=== PATIENT | male | born 1970 | race Two or more races ===

== ENCOUNTER 2024-06-09 06:45 | Day surgery (SDC) | payer MEDICAID, SELFPAY ==
[2024-06-09] VITALS (9 sets, daily range): BP systolic 98–154; BP diastolic 69–101; PULSE 60–81; RESP 12–20; TEMP 36.3–36.7; O2SAT 93–100
[2024-06-09] MEDS: SODIUM CHLORIDE 0.9% 100 ML IV (07:36)
[2024-06-09] MEDS: fentaNYL CIT INJ 50 mCg/ML AMP 2ML (ASD USE ONLY) IV (07:36)
[2024-06-09] MEDS: DiphenhydrAMINE INJ 50 MG/ML VIAL 25 MG IV (07:36)
[2024-06-09] MEDS: MIDAZOLAM INJ 1 MG/ML VIAL 2 ML (ASD USE ONLY) 2 MG IV (07:36)
== END 2024-06-09 08:20 | disposition home or self-care (01) ==
PROVIDERS: PCP Family Medicine; Referring Provider Surgery; Visit Provider Surgery
PROC: 0DBE8ZX Excision of Large Intestine, Via Natural or Artificial Opening Endoscopic, Diagnostic (ICD-10-PCS; CPT 45380; principal; 2024-06-09 07:30)
DX: Z12.11 Encounter for screening for malignant neoplasm of colon (principal); K57.30 Diverticulosis of large intestine without perforation or abscess without bleeding
CPT/HCPCS: 44388; J1200; J2250; J3010; J7050

== ENCOUNTER 2024-07-10 08:40 | Inpatient (IN) | payer MEDICAID, SELFPAY ==
--- NOTE | 2024-07-07 06:26 | EKG_ITS ---
[facility] Test Date: 2024-07-07 Pat Name: AMAURI MAI Department: Room: - Gender: Male Vice President Business & Corporate Development: RAQUEL : 1970 Requested By: Vivian Porras Order Number: [id number] Reading MD: Vivian Porras Measurements Intervals Eighty Four Rate: 62 P: 30 ID: [id number] QRS: 3 QRSD: 90 T: 38 QT: 399 QTc: 407 Interpretive Statements SINUS RHYTHM Compared to ECG 11/29/2023 08:17:30 Sinus tachycardia no longer present /store/S0/[id number]
[2024-07-07 09:15] VITALS: BMI 30.9
[2024-07-07 11:29] LABS: Basophils # (Auto) 0.1 Thou/mm3 (0.0-0.2); Basophils % (Auto) 1 % (0-2.5); Eosinophils # (Auto) 0.1 Thou/mm3 (0.0-0.5); Eosinophils % (Auto) 3 % (0-10); Hematocrit 44.3 % (41.0-53.0); Hemoglobin 15.4 g/dL (13.5-16.0); Immature Granulocytes % (Auto) 1 % (0-0); Immature Granulocytes Auto 0.04 Thou/mm3 (0.00-0.00); Lymphocytes # (Auto) 2.2 Thou/mm3 (1.0-4.8); Lymphocytes % (Auto) 50 % (10-50); Mean Corpuscular HGB Conc 34.8 g/dl (31.0-37.0); Mean Corpuscular Hemoglobin 31.4 pg (25.0-35.0); Mean Corpuscular Volume 90 fL (80-100); Monocytes # (Auto) 0.4 Thou/mm3 (0.0-0.8); Monocytes % (Auto) 10 % (0-12); Neutrophils # (Auto) 1.5 Thou/mm3 (1.8-7.7); Neutrophils % (Auto) 35 % (37-80); Nucleated Red Blood Cell % 0 /100 WBC (0); Platelet Count 203 Thou/mm3 (140-440); RDW Standard Deviation 45.4 fL (35.1-43.9); Red Blood Count 4.91 Miln/mm3 (4.50-5.90); White Blood Count 4.3 Thou/mm3 (3.8-10.6)
[2024-07-07 11:41] LABS: Anion Gap 6 (7-16); BUN/Creatinine Ratio 8 Ratio (12-20); Blood Urea Nitrogen 10 mg/dL (9-23); Calcium 9.2 mg/dL (8.3-10.6); Carbon Dioxide 24.7 mMol/L (20.0-31.0); Chloride 108 mMol/L (98-107); Creatinine (Component) 1.2 mg/dL (0.6-1.3); Estimated Creatinine Clearance 67.1 mL/min (>60); Glucose 105 mg/dL (74-106); Osmolality,Calculated 276 (275-295); Potassium 4.5 mMol/L (3.4-5.1); Sodium 139 mMol/L (136-145); eGFR > 60 See Note
[2024-07-10] VITALS (12 sets, daily range): BP systolic 112–151; BP diastolic 80–99; PULSE 57–68; RESP 12–18; TEMP 36.1–36.8; O2SAT 93–99; BMI 30.4
--- NOTE | 2024-07-10 15:07 | ESOP_ITS ---
Date of Procedure 07/10/24 Pre Op Diagnosis History of perforated diverticulitis status post sigmoid colectomy and colostomy Post Op Diagnosis History of perforated diverticulitis status post sigmoid colectomy with colostomy Parastomal hernia Procedure Exploratory laparotomy, lysis of adhesions and reversal of colostomy Findings Significant amount of adhesions from previous operation. Patient was noted to have moderate size parastomal hernia Procedure Description Patient is brought to the operating room in supine position. After admin istration of general endotracheal anesthesia, patient was placed in low lithotomy position. The colostomy site was closed with a pursestring suture using 0 Prolene. Patient's abdomen and perineum prepped and draped in standard surgical manner. A laparotomy incision was made over his previous scar and dissection was deepened into soft tissue. The abdominal cavity was entered. Patient was noted to have significant amounts of adhesions from previous operation that were lysed. The small bowel was then retracted cephalad into the right upper quadrant. A Bookwalter retractor was placed for adequate exposure. Multiple loops of small bowel were adherent to the rectal stump, adhesions were divided and the loops of small bowel were freed. The Prolene sutures that were placed at the previous operation at the rectal stump were then identified and the proximal aspect of rectal stump was mobilized for the anastomosis. At this point I turned my attention to the colostomy site. An elliptical incision was made around the colostomy site and the colostomy was circumferentially dissected out surrounding tissue. Patient was noted to have a parastomal hernia that was not incarcerated. The hernia sac was circumferentially dissected out surrounding tissue and excised. The colostomy site was then reduced. The end of colostomy was divided with ADDIE stapling device. The end of descending colon was reaching the pelvis without any tension. The end of descending colon was opened, a pursestring suture using 2-0 Prolene applied. The anvil portion of the EEA stapling device was placed at the end of descending colon and the pursestring suture was tightened. Patient's rectum and anal canal were sequentially dilated. The EEA stapling device was placed through the rectum and was brought out just anterior to the rectal stump. The EEA stapling device was opened and connected to the anvil, care was taken to make sure orientation was appropriate without tension or any kinking. The stapling device was closed and fired. 2 well-formed donuts were retrieved. The integrity of the anastomosis was then checked by doing an air leak test. A rigid proctoscope was placed through the anal canal and air was insufflated. The pelvis was filled with warm saline, there was no evidence of any air leak assuring anastomosis was airtight. Air was removed and the rigid proctoscope was removed. Using 3-0 silk suture circumferential Lembert sutures were placed around the anastomosis to further secure the anastomosis. Abdomen and pelvis copiously and thoroughly washed and irrigated, all the fluids were suctioned and the suction fluid returned clear. Hemostasis was adequate and satisfactory. I then turned my attention to closure of the posterior layer of the colostomy site. The peritoneum and posterior abdominal fascia opening of the colostomy site were closed with interrupted [id number]-eb-[id number] sutures using 0 Prolene. The laparotomy incision was then closed. The fascia was reapproximated with interrupted sutures using 0 PDS as well as interrupted sutures with #1 Vicryl. The wound was washed and the skin was closed with maia. The anterior abdominal fascial defect of colostomy site was then closed with interrupted [id number] sutures using 0 Prolene. The wound was washed and the skin was partially closed with maia. Telfa abad were placed between the stapler to act as a drain. Both incisions were covered with dry dressings and abdominal binder applied. Patient tolerated procedure well. He was placed in supine position and extubated. He was breathing spontaneously and without difficulty and was transferred to postanesthesia care in stable condition. Instruments, needles and sponge counts were reported to be correct x 2. Anesthesia GETA Pathology / specimen Other (Colostomy site) Estimated Blood Loss 100 Condition Stable Disposition PACU Surgeon Vivian Porras MD Surgical Staff Operation Date: 07/10/24 12:15 Case Staff ELECTRODE CLEANING MACHINE OPERATOR: Maik Bishop RNsupervisor heat treating: Cyndee Dennis
--- NOTE | 2024-07-10 15:16 | SUR.PHASEI ---
1516: Pt. wakes to name then drifts back to sleep, vitals stable, breathing unlabored, no signs of distress, dressing to ABD CDI, ABD Binder in place, no active bleed noted, bowens catheter in place, report received from Maik BASSETT and Jori HENRY.
[2024-07-10] MEDS: HYDROmorphone 1 MG/ML PCA SYRINGE 30ML PCA (15:44)
[2024-07-10] MEDS: KCL 20 mEq/L in D5-1/2NS 20 MEQ/1,000 ML BAG 65 MEQ IV (15:54)
--- NOTE | 2024-07-10 16:40 | SUR.PHASEI ---
1640: Pt. AAOx4, vitals stable, breathing unlabored, no complaint of pain or nausea, dressing to ABD CDI, no active bleed noted, bowens catheter in place, gave report to Armen RN prior to transfer to room, family made aware of transfer to room.
[2024-07-10] MEDS: CEFOXITIN 2 GM in SODIUM CHLORIDE 0.9% (Popper) 50 ML IV ×2 (17:59→23:06)
[2024-07-10] MEDS: ASCORBIC ACID 250 MG TABLET 500 MG PO (20:40)
[2024-07-10] MEDS: DOCUSATE SOD 100 MG CAPSULE PO (20:40)
[2024-07-11] VITALS (10 sets, daily range): BP systolic 105–135; BP diastolic 65–91; PULSE 67–81; RESP 13–19; TEMP 36.2–37.1; O2SAT 93–100
[2024-07-11] MEDS: ACETAMINOPHEN IVPB 1,000 MG/100 ML VIAL 250 MG IV ×3 (00:05→12:22)
[2024-07-11] MEDS: CEFOXITIN 2 GM in SODIUM CHLORIDE 0.9% (Popper) 50 ML IV ×4 (05:14→23:31)
[2024-07-11] MEDS: KCL 20 mEq/L in D5-1/2NS 20 MEQ/1,000 ML BAG 65 MEQ IV (09:01)
--- NOTE | 2024-07-11 11:52 | PD.SURPROG ---
Documentation for date of: 07/11/24 Subjective Subjective Narrative: Patient is seen and examined. He is resting comfortably. He is complaining of incisional pain, controlled with REFRACTORY FURNACE DESIGNER. He denies nausea or vomiting. He has not passed flatus or bowel movement yet Exam Vital Signs Temp Pulse Resp BP Pulse Ox O2 Del Method O2 Flow Rate 97.4 F 68 18 119/75 97 Room Air 4 07/11/24 08:00 07/11/24 08:00 07/11/24 08:00 07/11/24 08:00 07/11/24 08:00 07/11/24 08:00 07/11/24 08:00 Constitutional Constitutional: no acute distress Routine Abdominal Exam Abdominal: Present soft, tenderness (Incisions with dressings clean, dry and intact) and distended (Mildly distended); Absent normoactive bowel sounds Assessment & Plan Assessment Additional comments: Postop day #1 status post exploratory laparotomy, lysis of adhesions and reversal of colostomy Plan Continue IV antibiotics. Keep patient n.p.o. with IV fluids. May have ice chips. Increase ambulation and use incentive spirometer Procedures Procedures Exploratory laparotomy, lysis of adhesions and reversal of colostomy
[2024-07-11] MEDS: ASCORBIC ACID 250 MG TABLET 500 MG PO ×2 (12:21→20:09)
[2024-07-11] MEDS: ZINC SULFATE 220 MG CAPSULE PO (12:21)
[2024-07-11] MEDS: DOCUSATE SOD 100 MG CAPSULE PO ×2 (12:22→20:09)
--- NOTE | 2024-07-11 13:22 | PC.NURSE ---
pt ambulated around the unit
[2024-07-12] VITALS (10 sets, daily range): BP systolic 114–150; BP diastolic 89–98; PULSE 80–97; RESP 14–19; TEMP 36–36.7; O2SAT 95–99
[2024-07-12] MEDS: KCL 20 mEq/L in D5-1/2NS 20 MEQ/1,000 ML BAG 65 MEQ IV (01:12)
[2024-07-12] MEDS: CEFOXITIN 2 GM in SODIUM CHLORIDE 0.9% (Popper) 50 ML IV ×3 (05:02→17:57)
[2024-07-12 06:10] LABS: Basophils % (Auto) 0 % (0-2.5); Eosinophils % (Auto) 0 % (0-10); Hematocrit 41.3 % (41.0-53.0); Hemoglobin 13.7 g/dL (13.5-16.0); Immature Granulocytes % (Auto) 0 % (0-0); Immature Granulocytes Auto 0.03 Thou/mm3 (0.00-0.00); Lymphocytes # (Auto) 1.5 Thou/mm3 (1.0-4.8); Lymphocytes % (Auto) 15 % (10-50); Mean Corpuscular HGB Conc 33.2 g/dl (31.0-37.0); Mean Corpuscular Hemoglobin 30.4 pg (25.0-35.0); Mean Corpuscular Volume 92 fL (80-100); Monocytes # (Auto) 0.7 Thou/mm3 (0.0-0.8); Monocytes % (Auto) 7 % (0-12); Neutrophils # (Auto) 7.7 Thou/mm3 (1.8-7.7); Neutrophils % (Auto) 77 % (37-80); Nucleated Red Blood Cell % 0 /100 WBC (0); Platelet Count 174 Thou/mm3 (140-440); RDW Standard Deviation 48.6 fL (35.1-43.9); Red Blood Count 4.51 Miln/mm3 (4.50-5.90)
[2024-07-12 06:42] LABS: Anion Gap 6 (7-16); BUN/Creatinine Ratio 9 Ratio (12-20); Blood Urea Nitrogen 12 mg/dL (9-23); Calcium 8.2 mg/dL (8.3-10.6); Calcium (Corrected) 8.2 mg/dL (8.5-10.1); Carbon Dioxide 27.4 mMol/L (20.0-31.0); Chloride 103 mMol/L (98-107); Creatinine (Component) 1.3 mg/dL (0.6-1.3); Estimated Creatinine Clearance 61.5 mL/min (>60); Glucose 118 mg/dL (74-106); Magnesium 2.2 mg/dL (1.6-2.6); Osmolality,Calculated 272 (275-295); Phosphorous 2.6 mg/dL (2.4-5.1); Potassium 4.4 mMol/L (3.4-5.1); Sodium 136 mMol/L (136-145); eGFR > 60 See Note
[2024-07-12] MEDS: DOCUSATE SOD 100 MG CAPSULE PO ×2 (09:09→20:41)
[2024-07-12] MEDS: ASCORBIC ACID 250 MG TABLET 500 MG PO ×2 (09:09→20:41)
[2024-07-12] MEDS: ZINC SULFATE 220 MG CAPSULE PO (09:09)
--- NOTE | 2024-07-12 12:05 | PD.SURPROG ---
Documentation for date of: 07/12/24 Subjective Subjective Narrative: Patient is seen and examined. He is complaining of headache. Abdominal pain is improving. He denies nausea or vomiting. Exam Vital Signs Temp Pulse Resp BP Pulse Ox O2 Del Method O2 Flow Rate 98.1 F 88 17 143/90 H 96 Room Air 4 07/12/24 11:33 07/12/24 11:33 07/12/24 11:33 07/12/24 11:33 07/12/24 11:33 07/12/24 11:07/12/24 09:16 Constitutional Constitutional: no acute distress Routine Abdominal Exam Comments: Abdomen is soft and minimally distended. He has hypoactive bowel sounds. Incisions with dressings clean, dry and intact Assessment & Plan Assessment Additional comments: Postop day #2 status post exploratory laparotomy with lysis of adhesions and reversal of colostomy Plan Continue IV antibiotics. Will start patient on liquid diet. DC Tate catheter. Use incentive spirometer and increase ambulation Procedures Procedures Exploratory laparotomy, lysis of adhesions and reversal of colostomy
[2024-07-12] MEDS: ACETAMINOPHEN 325 MG TABLET 650 MG PO (21:50)
[2024-07-12] MEDS: KCL 20 mEq/L in D5-1/2NS 20 MEQ/1,000 ML BAG 40 MEQ IV (21:59)
[2024-07-13] VITALS (10 sets, daily range): BP systolic 120–144; BP diastolic 75–97; PULSE 79–96; RESP 16–18; TEMP 36.1–37.4; O2SAT 93–97; BMI 30.3
[2024-07-13] MEDS: CEFOXITIN 2 GM in SODIUM CHLORIDE 0.9% (Popper) 50 ML IV ×4 (00:04→18:23)
[2024-07-13] MEDS: ASCORBIC ACID 250 MG TABLET 500 MG PO ×2 (08:36→20:04)
[2024-07-13] MEDS: DOCUSATE SOD 100 MG CAPSULE PO ×2 (08:37→20:04)
[2024-07-13] MEDS: ZINC SULFATE 220 MG CAPSULE PO (08:37)
--- NOTE | 2024-07-13 10:00 | CHAP ---
Patient was visited by the Spiritual Care Volunteer who prayed for them. (Volunteer was in the hospital from 9:29-c10:00)
--- NOTE | 2024-07-13 15:09 | PD.SURPROG ---
Documentation for date of: 07/13/24 Subjective Subjective Narrative: Patient is seen and examined. His pain is improving. He is tolerating liquids without nausea or vomiting and passing flatus. His Tate catheter was removed, he has been voiding without difficulty Exam Vital Signs Temp Pulse Resp BP Pulse Ox O2 Del Method O2 Flow Rate 97.4 F 90 18 144/92 H 94 L Room Air 4 07/13/24 12:00 07/13/24 12:00 07/13/24 12:00 07/13/24 12:00 07/13/24 12:00 07/13/24 12:00 07/12/24 09:16 Constitutional Constitutional: no acute distress Routine Abdominal Exam Comments: Abdomen is soft and minimally distended. Incision with dressings clean, dry and intact. He has active bowel sounds Assessment & Plan Assessment Additional comments: Postop day #3 status post exploratory laparotomy with lysis of adhesions and reversal of colostomy Plan Continue IV antibiotics. Will advance to full liquids Procedures Procedures Exploratory laparotomy, lysis of adhesions and reversal of colostomy
--- NOTE | 2024-07-13 16:07 | PC.SS ---
Follow up note: Advance diet. Pain Management. On IV antibiotic.
[2024-07-14] VITALS (8 sets, daily range): BP systolic 115–140; BP diastolic 85–98; PULSE 88–106; RESP 16–97; TEMP 36.2–37.1; O2SAT 95–97
[2024-07-14] MEDS: CEFOXITIN 2 GM in SODIUM CHLORIDE 0.9% (Popper) 50 ML IV ×4 (00:40→18:40)
[2024-07-14 05:53] LABS: Basophils # (Auto) 0.1 Thou/mm3 (0.0-0.2); Basophils % (Auto) 1 % (0-2.5); Eosinophils # (Auto) 0.3 Thou/mm3 (0.0-0.5); Eosinophils % (Auto) 3 % (0-10); Hematocrit 41.9 % (41.0-53.0); Hemoglobin 14.7 g/dL (13.5-16.0); Immature Granulocytes % (Auto) 1 % (0-0); Immature Granulocytes Auto 0.08 Thou/mm3 (0.00-0.00); Lymphocytes # (Auto) 1.9 Thou/mm3 (1.0-4.8); Lymphocytes % (Auto) 22 % (10-50); Mean Corpuscular HGB Conc 35.1 g/dl (31.0-37.0); Mean Corpuscular Hemoglobin 30.8 pg (25.0-35.0); Mean Corpuscular Volume 88 fL (80-100); Monocytes # (Auto) 0.9 Thou/mm3 (0.0-0.8); Monocytes % (Auto) 10 % (0-12); Neutrophils # (Auto) 5.5 Thou/mm3 (1.8-7.7); Neutrophils % (Auto) 63 % (37-80); Nucleated Red Blood Cell % 0 /100 WBC (0); Platelet Count 240 Thou/mm3 (140-440); RDW Standard Deviation 43.2 fL (35.1-43.9); Red Blood Count 4.77 Miln/mm3 (4.50-5.90); White Blood Count 8.6 Thou/mm3 (3.8-10.6)
[2024-07-14 06:21] LABS: Albumin, Serum 4.1 gm/dL (3.5-5.0); Anion Gap 10 (7-16); BUN/Creatinine Ratio 19 Ratio (12-20); Blood Urea Nitrogen 17 mg/dL (9-23); Calcium 9.1 mg/dL (8.3-10.6); Calcium (Corrected) 9.1 mg/dL (8.5-10.1); Carbon Dioxide 23.1 mMol/L (20.0-31.0); Chloride 104 mMol/L (98-107); Creatinine (Component) 0.9 mg/dL (0.6-1.3); Estimated Creatinine Clearance 88.8 mL/min (>60); Glucose 112 mg/dL (74-106); Magnesium 2.1 mg/dL (1.6-2.6); Osmolality,Calculated 276 (275-295); Phosphorous 3.7 mg/dL (2.4-5.1); Potassium 4.1 mMol/L (3.4-5.1); Sodium 137 mMol/L (136-145); eGFR > 60 See Note
[2024-07-14] MEDS: ZINC SULFATE 220 MG CAPSULE PO (09:28)
[2024-07-14] MEDS: DOCUSATE SOD 100 MG CAPSULE PO ×2 (09:28→20:04)
[2024-07-14] MEDS: ASCORBIC ACID 250 MG TABLET 500 MG PO ×2 (09:28→20:03)
--- NOTE | 2024-07-14 10:51 | CHAP ---
Patient was visited by a Spiritual Care Volunteer on 07/14/2024 between 0910 and 3203 and received comfort, encouragement and/or prayer.
--- NOTE | 2024-07-14 12:08 | PC.SS ---
SS met with patient and family (sister &brother in law) regarding his d/c plan.? Pt is alert/oriented.? Pt was admitted for Exp Lap 25596.? Pt confirmed demographic and contact information is correct on facesheet.? Pt resides alone.? Pt ambulates independently without assistance or DME.? Pt is ok with all ADLs.? Pt named his sister, Grecia Yoder medical decision maker if he is unable.? Patient?s choice is to return home upon d/c.? ?Pt states not diabetic and is not on dialysis.? Pt followed up with PCP 4 weeks ago and his next appointment is 08-22-2024 at 2:30pm.?? D/C plan:? Return home Next of Kin:? ?Grecia Yoder, sister, phone# [phone] PCP:? Dr. Karson Grant from [facility] in [place] Address:? Correct on facesheet Patient's phone#:? [phone]
--- NOTE | 2024-07-14 15:10 | PC.NURSE ---
AT BEDSIDE ASSESSING INCISION
--- NOTE | 2024-07-14 15:27 | PD.SURPROG ---
Documentation for date of: 07/14/24 Subjective Subjective Narrative: Patient is seen and examined. His pain is improving. He is tolerating liquids without nausea or vomiting and having bowel movements Exam Vital Signs Temp Pulse Resp BP Pulse Ox O2 Del Method O2 Flow Rate 97.1 F 92 18 127/93 H 97 Room Air 4 07/14/24 12:00 07/14/24 12:00 07/14/24 12:00 07/14/24 12:00 07/14/24 12:00 07/14/24 12:00 07/12/24 09:16 Constitutional Constitutional: no acute distress Routine Abdominal Exam Comments: Abdomen is soft and nondistended. Incisions are clean, dry and intact Assessment & Plan Assessment Additional comments: Postop day #4 status post exploratory laparotomy with lysis of adhesions and reversal of colostomy Plan Will advance to soft diet. If he tolerates diet and continues to have bowel movement, possible discharge home tomorrow Procedures Procedures Exploratory laparotomy, lysis of adhesions and reversal of colostomy
[2024-07-15] VITALS: BP 136/94; PULSE 98; RESP 20; TEMP 36.5; O2SAT 95
[2024-07-15] MEDS: CEFOXITIN 2 GM in SODIUM CHLORIDE 0.9% (Popper) 50 ML IV ×2 (00:09→05:11)
[2024-07-15 04:00] VITALS: BP 137/96; PULSE 90; RESP 16; TEMP 36.6; O2SAT 97
[2024-07-15 08:00] VITALS: BP 132/98; PULSE 87; RESP 16; TEMP 36.2; O2SAT 96
[2024-07-15] MEDS: DOCUSATE SOD 100 MG CAPSULE PO (08:16)
[2024-07-15] MEDS: ZINC SULFATE 220 MG CAPSULE PO (08:16)
[2024-07-15] MEDS: ASCORBIC ACID 250 MG TABLET 500 MG PO (08:16)
--- NOTE | 2024-07-15 08:27 | ESDS_ITS ---
Planned Discharge Date 07/15/24 DS: Providers Provider Date of admission: 07/10/24 08:40 Primary care physician: Karson Grant MD Admitting Provider: Vivian Porras MD Attending Provider on Admission: Vivian Porras MD Attending Provider on DC: Vivian Porras MD Discharging Provider: Vivian Porras MD Diagnosis Problem List Completed Was Problem List Reviewed/Reconciled?: Yes Hospital Course Brief History: Patient has history of perforated diverticulitis for which she underwent sigmoid colectomy with end colostomy. He underwent colonoscopy that was unremarkable. Patient was then scheduled for exploratory laparotomy and reversal of colostomy. Patient underwent exploratory laparotomy with lysis of adhesions and reversal of colostomy. His Tate catheter was removed on postop day #2, he was able to void without difficulty. He was started on liquid diet and his diet was gradually advanced. He was eating and tolerating diet well without nausea or vomiting. He started passing flatus and had bowel movements. His incisions are clean, dry and intact. He has remained hemodynamically stable and afebrile throughout hospitalization. He is being discharged home in stable condition. Status at Discharge Functional status at discharge: independent ambulation Overall status at discharge: patient is progressing back to baseline Exam Vital Signs Temp Pulse Resp BP Pulse Ox O2 Del Method O2 Flow Rate 97.1 F 87 16 132/98 H 96 Room Air 4 07/15/24 08:00 07/15/24 08:00 07/15/24 08:00 07/15/24 08:00 07/15/24 08:00 07/15/24 08:00 07/12/24 09:16 Constitutional Constitutional: no acute distress Routine Abdominal Exam Abdominal: Present soft, normoactive bowel sounds and tenderness (Mild josafat- incisional tenderness. Incisions are clean, dry and intact); Absent distended Discharge Plan Plan Patient Disposition: HOME (Self Care) Prescriptions/Referrals Prescriptions/Med Rec: New hydrocodone-acetaminophen 5-325 mg Tablet 1 tab PO Q6HR MDD 4 PRN (Reason: Pain Scale 4-6 (Moderate) Qty: 30 0RF ascorbic acid (vitamin C) [Vitamin C] 250 mg Tablet 500 mg PO BID Qty: 60 0RF docusate sodium 100 mg Capsule 100 mg PO BID Qty: 30 0RF zinc sulfate 50 mg zinc (220 mg) Capsule 220 mg PO QDAY Qty: 30 0RF Referrals: Karson Grant MD [Primary Care Provider] - Patient/Caregiver Discharge Instructions Discharge Activity: activity as tolerated Print Language: Croatian Activity Restrictions/Additional Instructions: May shower. Keep incisions clean and dry. Wear abdominal binder at all times. Avoid lifting, straining, pulling or pushing for 8 weeks. May take over the counter laxatives if no bowel movement in [address] days[address] Follow up with Dr. Porras at [facility] in 2 weeks, please call for an appointment. Continue soft diet for 1 week then advance to high-fiber diet. Stand Alone Forms: Personal Development Bureau Award Info., Patient Portal Info Letter Discharge Order Discharge Orders: Discharge (Routine); Ordered 07/15/24 Ordered By: Vivian Porras Procedures Procedure Date 07/10/24 Procedures Exploratory laparotomy, lysis of adhesions and reversal of colostomy
[2024-07-15 08:30] VITALS: PULSE 87; RESP 18; RESP 97
[2024-07-15 12:00] VITALS: BP 114/87; PULSE 95; RESP 18; TEMP 36.3; O2SAT 97
== END 2024-07-15 12:51 | disposition home or self-care (01) | DRG 231 ==
LOC: S2W1 09:03 → S3SX 16:51
PROVIDERS: Admitting Provider Surgery; PCP Internal Medicine; Visit Provider Surgery
PROC: 0DBN0ZZ Excision of Sigmoid Colon, Open Approach (ICD-10-PCS; CPT 49000; principal; 2024-07-10 12:00)
DX: Z43.3 Encounter for attention to colostomy (principal); K43.5 Parastomal hernia without obstruction or gangrene; K66.0 Peritoneal adhesions (postprocedural) (postinfection); K57.80 Diverticulitis of intestine, part unspecified, with perforation and abscess without bleeding
CPT/HCPCS: 36415; 80048; 80069; 83735; 85025; 93005; A4217; A4649; J0131; J0694; J1100; J2371; J2405; J2704; J3010; J3480; J3490; J7050; A9270; J1920

== ENCOUNTER 2024-07-19 13:57 | Emergency (ER) | payer MEDICAID, SELFPAY ==
[2024-07-19 14:27] VITALS: BP 144/83; PULSE 77; RESP 16; TEMP 36.9; O2SAT 97; BMI 29.9
--- NOTE | 2024-07-19 14:45 | EDNOTE_ITS ---
<Statement entered by Marie Harrell MD - 07/19/24 17:50> As co-signing physician, I was present and available for consult prn. I concur with the plan and care as documented by the midlevel provider. ED General RME/HPI General Chief complaint: General Adult/Misc Complain Stated complaint: INCISION OPENED A LITTLE, SURGERY LAST WEEK Time Seen by Provider: 07/19/24 14:17 Arrival date/time: 07/19/24 13:57 54-year-old male presents emergency department today stating that he had surgery last week for a colostomy reversal patient reports that he has a wound dehiscence at the colostomy site at this time. Patient REports no fever nausea or vomiting Limitations: no limitations Related Data Previous Rx's ?Medication ?Instructions ?Recorded ascorbic acid (vitamin C) 250 mg 500 mg (2 x 250 mg) P O BID #60 tabs 07/15/24 tablet (Vitamin C) docusate sodium 100 mg capsule 100 mg PO BID #30 caps 07/15/24 hydrocodone 5 mg-acetaminophen 325 1 tab PO Q6HR PRN P ain Scale 4-6 07/15/24 mg tablet (Moderate #30 tabs zinc sulfate 50 mg zinc (220 mg) 220 mg (4.4 x 50 mg z inc (220 mg)) 07/15/24 capsule PO QDAY #30 caps sulfamethoxazole 800 1 tab PO BID 7 days #14 tabs 07/19/24 mg-trimethoprim 160 mg tablet (Bactrim DS) Allergies Allergy/AdvReac Type Severity Reaction Status Date / Time No Known Allergies Allergy Verified 07/19/24 14:06 Review of Systems Review of Systems Systems Reviewed: All systems reviewed, normal except as documented Constitutional Constitutional: Reports system reviewed and no additional complaints, except as documented, Denies fever(s) and Denies headache(s) Eyes Eyes: Reports system reviewed and no additional complaints, except as documented and Denies blurry vision ENT Ears, Nose, Mouth, and Throat: Reports system reviewed and no additional complaints, except as documented, Denies headache(s), Denies nasal congestion and Denies nasal discharge Cardiovascular Cardiovascular: Reports system reviewed and no additional complaints, except as documented, Denies chest pain and Denies dyspnea Respiratory Respiratory: Reports system reviewed and no additional complaints, except as documented, Denies chest congestion, Denies cough and Denies dyspnea Gastrointestinal Gastrointestinal: Reports system reviewed and no additional complaints, except as documented and Denies abdominal pain Integumentary/Breasts Skin/Breast: Reports system reviewed and no additional complaints, except as documented, Denies rash and Reports wounds (Wound dehiscence left lower abdomen) Neurologic Neurologic: Reports system reviewed and no additional complaints, except as documented, Reports as per HPI and Denies headache(s) Past Medical History Past Medical History NEUROLOGIC: Negative Neurological Disorders or Seizures CARDIAC: Negative Cardiac Disorders or Congestive Heart Failure RESPIRATORY: Negative Chronic Obstructive Pulmonary Disease (COPD) or Asthma GASTROINTESTINAL: Positive Gastrointestinal Disorders and Diverticulitis; Negative Hepatitis GENITOURINARY: Negative Genitourinary Disorders or Renal Disease MUSCULOSKELETAL: Negative Musculoskeletal Disorders ENDOCRINE: Negative Endocrine Disorders, Diabetes Mellitus Type 1 or Diabetes Mellitus Type 2 HEMATOLOGIC: Negative Blood Disorders or Sickle Cell Disease OTHER HISTORY: Positive Hospitalization (surgery), Chicken Pox and Measles; Negative Autoimmune Disease, Shingles, Blood Transfusions, Anesthesia Reactions or Cancer Family History FAMILY HISTORY: Positive Family Surgery; Negative Family Psychiatric Problems, Family Respiratory Disorders, Family Cardiac Disorders, Family Gastrointestinal Problems, Family Cancer or Family Anesthesia Reaction Surgical History SURGICAL: Positive Bowel Surgery (Sigmoid colectomy with colostomy) Social History SMOKING STATUS: Never smoker SECOND HAND EXPOSURE: No SUBSTANCE USE: methamphetamine ED Exam General Limitations: Present no limitations General appearance: Present alert and in no apparent distress Head Head exam: Present atraumatic Eye Eye exam: Present normal appearance, PERRL and EOMI ENT ENT exam: Present normal exam, normal oropharynx and mucous membranes moist Neck Neck exam: Present normal inspection, full ROM and trachea midline Chest Chest inspection: Present normal inspection and symmetric chest wall rise Respiratory Respiratory exam: Present normal lung sounds bilaterally Cardiovascular Cardiovascular exam: Present regular rate, normal rhythm and normal heart sounds Abdominal Exam Abdominal exam: Present soft and normal bowel sounds Extremities Exam Extremities exam: Present normal inspection and full ROM Back Exam Back exam: Present normal inspection and full ROM Neurological Exam Neurological exam: Present alert, oriented X3 and CN II-XII intact Psychiatric Psychiatric exam: Present normal affect and normal mood Skin Skin exam: Present warm, dry, intact and normal color Course Quality Measures none Orders Category Date Time Status Wound Care NOW Care 07/19/24 14:47 Active Vital Signs Vital signs: Vital Signs Temperature 98.4 F 07/19/24 14:27 Pulse Rate 77 07/19/24 14:27 Respiratory Rate 16 07/19/24 14:27 Blood Pressure 144/83 H 07/19/24 14:27 Pulse Oximetry (%) 97 07/19/24 14:27 Oxygen Delivery Method Room Air 07/19/24 14:27 O2 saturation 97% room air within normal limits MDM Patient data External records reviewed:: [facility] previous records Clinical information provided by:: patient Social determinants that could affect healthcare access:: none Patient has the following chronic illnesses:: None How is presenting disease/condition affected by chronic disease/condition?: no chronic disease Evaluation data The following diagnostics were reviewed and interpreted by me:: other (specify) (N/A) Lab and/or radiology exams considered but not ordered:: N/A Interpretation Summary: -N-/-A- Medications Medications considered but not ordered:: Given Medication administrations:: Given Consultations Consultation(s) initiated? (list below): Yes Consultation #1 (Physician, Specialty, Details): Dr Porras patient Surgeon Diagnosis Differential Diagnosis ED Complaint MDM: Abscess, cellulitis, wound dehiscence Most likely diagnosis given after review of the tests above:: Wound dehiscence Admission Indicated Admission indicated?: not indicated Explain why admission is indicated or not indicated:: No criteria Admission Request Was there a request for admission?: No Disposition Plan Disposition Plan: Discharge Discharge Attestation Discharge Attestation: The patient and all family members were given an opportunity to ask questions and understood the discharge instructions. Discharge instructions specifically effects, indications for sooner follow up or return to the emergency department, and the expected course of current diagnosis. Patient condition: Stable Medical Decision Making MDM Narrative MDM Narrative: 54-year-old male presents emergency department today stating that he had surgery last week for a colostomy reversal patient reports that he has a wound dehiscence at the colostomy site at this time. Patient REports no fever nausea or vomiting On exam patient well-appearing patient does not appear ill or toxic on exam patient does have wound dehiscence at the colostomy site Consultation: I spoke with Dr. Porras patient surgeon reports that he would like me to remove 5 of the maia and leave 3 of the maia in place. Dr. Porras asked that I do a wet-to-dry dressing explained to the patient how to do wet-to-dry dressings and give the patient a prescription for Bactrim Patient is to follow-up with Dr. Porras in his office For emergent concerns patient instructed to return immediately Differential Diagnosis Differential Diagnosis: Abscess, cellulitis, wound dehiscence Medical Records Medical records reviewed: Yes I reviewed the patient's medical records. Discharge Plan Plan Patient Disposition: HOME (Self Care) Disposition Comment: Stable Prescriptions/Referrals Prescriptions/Med Rec: New sulfamethoxazole-trimethoprim [Bactrim DS] 800-160 mg tablet 1 tab PO BID 7 Days Qty: 14 0RF No Action hydrocodone-acetaminophen 5-325 mg Tablet 1 tab PO Q6HR MDD 4 PRN (Reason: Pain Scale 4-6 (Moderate) Qty: 30 0RF ascorbic acid (vitamin C) [Vitamin C] 250 mg Tablet 500 mg PO BID Qty: 60 0RF docusate sodium 100 mg Capsule 100 mg PO BID Qty: 30 0RF zinc sulfate 50 mg zinc (220 mg) Capsule 220 mg PO QDAY Qty: 30 0RF Problem List Clinical Impression: Abdominal wound dehiscence Patient/Caregiver Discharge Instructions Additional Instructions: Please follow-up with your surgeon as discussed for worsening symptoms return immediately Print Language: [place]an Stand Alone Forms: [place] Award Info., Patient Portal Info Letter PA/SYRUP MIXER HELPER Supervising Physician PA/SYRUP MIXER HELPER Supervising Physician: Dr HARRELL
== END 2024-07-19 14:59 | disposition home or self-care (01) ==
LOC: SERX 15:07
PROVIDERS: Emergency Provider Emergency Medicine
DX: T81.31XA Disruption of external operation (surgical) wound, not elsewhere classified, initial encounter (principal); Y83.3 Surgical operation with formation of external stoma as the cause of abnormal reaction of the patient, or of later complication, without mention of misadventure at the time of the procedure
CPT/HCPCS: 99281